=== PATIENT | male | born 1955 | race Asian ===

== ENCOUNTER 2022-09-06 17:51 | Emergency (ER) | payer MEDICARE ==
[~2022-09-06] VITALS: Ht 165.1 cm; Wt 57.0 kg
[2022-09-06 17:55] VITALS: BP 173/93
--- NOTE | 2022-09-06 18:12 | NUR ---
SPOKE TO MD NICHOLSON REGARDING PTS S\S - PT WAS THEN MOVED TO RM 18 SO MD CAN EXAMINE AND THEN ENTER ORDERS.
[2022-09-06 19:36] LABS: BASOPHILS # (AUTO) 0.1 X10'3 (0-0.2); BASOPHILS % (AUTO) 0.9 % (0-1); EOSINOPHILS # (AUTO) 0.2 X10'3 (0-0.9); EOSINOPHILS % (AUTO) 1.5 % (0-6); HEMATOCRIT 36.8 % (42.0-52.0); HEMOGLOBIN 11.7 g/dl (14.0-17.9); LYMPHOCYTES # (AUTO) 1.6 X10'3 (1.1-4.8); LYMPHOCYTES % (AUTO) 14.7 % (21-51); MEAN CORPUSCULAR HEMOGLOBIN 23.9 PG (27.0-31.0); MEAN CORPUSCULAR HGB CONC 31.8 g/dL (33.0-36.5); MEAN CORPUSCULAR VOLUME 75.2 FL (78-98); MEAN PLATELET VOLUME 9.8 FL (7.4-10.4); MONOCYTES # (AUTO) 0.7 X10'3 (0-0.9); MONOCYTES % (AUTO) 6.2 % (2-12); NEUTROPHILS # (AUTO) 8.6 X10'3 (1.8-7.7); NEUTROPHILS % (AUTO) 76.7 % (42-75); PLATELET COUNT 347 X10'3 (140-440); RED CELL DISTRIBUTION WIDTH 18.4 % (11.5-14.5); WHITE BLOOD COUNT 11.2 X10'3 (4.5-11.0)
[2022-09-06 19:40] LABS: APTT 29 SECONDS (22-32)
[2022-09-06 19:49] LABS: ALANINE AMINOTRANSFERASE 44 U/L (12-78); ALBUMIN 3.9 G/DL (3.4-5.0); ALBUMIN/GLOBULIN RATIO 1.2 (1.1-1.5); ALKALINE PHOSPHATASE 96 IU/L (46-116); ANION GAP 4 (8-16); ASPARTATE AMINO TRANSFERASE 30 U/L (10-37); BILIRUBIN,TOTAL 0.7 MG/DL (0.1-1.0); BLOOD UREA NITROGEN 22 MG/DL (7-18); BUN/CREATININE RATIO 15.6 (10.0-20.0); CHLORIDE 107 MMOL/L (99-107); CREATININE 1.41 MG/DL (0.60-1.10); GLUCOSE 96 MG/DL (70-104); POTASSIUM 4.2 MMOL/L (3.5-5.1); SODIUM 142 MMOL/L (135-145); TOTAL CARBON DIOXIDE 30.7 MMOL/L (24-32); TOTAL PROTEIN 7.1 G/DL (6.4-8.2); eGFR 50 ML/MIN
--- NOTE | 2022-09-06 21:27 | NUR ---
Pt's nephew at bedside states that he is not able to wait any longer and they are going to leave. Pt seen ambulating without assistance approximately 20 feet. Pt wheeled off the unit by his nephew.
== END 2022-09-06 22:08 | disposition left against medical advice (07) ==
LOC: ER 17:52
DX: M21.371 Foot drop, right foot (principal); R32 Unspecified urinary incontinence
CPT/HCPCS: 36415; 80053; 82948; 85025; 85610; 85730; 99284